=== PATIENT | male | born 1970 | race Hispanic/Latino ===

== ENCOUNTER → 2021-02-20 | Day surgery (SDC) | payer MEDICARE ==
[2021-02-19 15:57] LABS: BASOPHILS # (AUTO) 0.1 (0.0-0.1); BASOPHILS % 0.9 % (0.0-1.0); EOSINOPHILS # (AUTO) 0.2 (0.0-0.4); EOSINOPHILS % 1.8 % (0.0-6.0); HEMATOCRIT 45.2 % (38.2-49.6); HEMOGLOBIN 15.3 g/dL (14.0-18.0); LYMPHOCYTES # (AUTO) 1.8 (1.0-3.2); LYMPHOCYTES % 22.2 % (18.0-39.1); MEAN CORPUSCULAR HEMOGLOBIN 29.1 pg (28-32); MEAN CORPUSCULAR HGB CONC 33.8 g/dL (31-35); MEAN CORPUSCULAR VOLUME 85.9 fL (81-99); MONOCYTES # (AUTO) 0.6 (0.2-0.8); MONOCYTES % 7.4 % (4.4-11.3); NEUTROPHILS # (AUTO) 5.6 (2.1-6.9); NEUTROPHILS % 67.5 % (38.7-80.0); PLATELET COUNT 318 x10e3/uL (140-360); RED BLOOD COUNT 5.26 x10e6/uL (4.3-5.7); RED CELL DISTRIBUTION WIDTH 12.5 % (11.7-14.4)
[2021-02-19 16:07] LABS: ANION GAP 11.1 mmol/L (8-16); CALCIUM 9.2 mg/dL (8.4-10.2); CREATININE, SERUM 1.13 mg/dL (0.72-1.25); POTASSIUM 4.1 mmol/L (3.5-5.1)
[~2021-02-20] MED LIST: CEFTRIAXONE 1 GM VIAL ONE; CLOPIDOGREL75 MG PO; DEXAMETHASONE SOD PHOS INJ 4 MG/ML VIAL ONE; FARXIGA5 MG PO; FENTANYL CITRATE/PF 100MCG/2 ML INJ ONE; GLIMEPIRIDE2 MG PO; IOPAMIDOL 300MG/ML 50ML INFUS..BTL IV ONE; IRBESARTAN150 MG PO; LIDOCAINE HCL 2% LOCAL INJ 5 ML SDV VIAL INJ ONE; LYRICA100 MG PO; METFORMIN HCL500 MG PO; MIDAZOLAM HCL 2 MG/2 ML VIAL ONE; NEURONTIN400 MG PO; ONDANSETRON HCL INJ 2MG/ML 2ML 2 MG/ML VIAL ONE; PAMELOR25 MG PO; POVIDONE IODINE 0.05% 0.05 % ML PO ONE; PROPOFOL IV EMULSION 10 MG/ML 20 ML VIAL ONE; SEVOFLURANE INHAL SOLN 250 ML PEN BTL ONE; SIMVASTATIN80 MG PO; SODIUM CHLORIDE 0.9% 50ML 50 ML ONE; TRICOR145 MG PO
[2021-02-20 10:15] VITALS: BP 128/100
== END | disposition home or self-care (01) ==
LOC: OR 07:03
PROVIDERS: ATTEND Urology
DX: N32.89 Other specified disorders of bladder (principal); N40.1 Benign prostatic hyperplasia with lower urinary tract symptoms; N13.8 Other obstructive and reflux uropathy; N20.0 Calculus of kidney; D41.4 Neoplasm of uncertain behavior of bladder; R81 Glycosuria; E11.9 Type 2 diabetes mellitus without complications; Z01.810 Encounter for preprocedural cardiovascular examination; Z01.812 Encounter for preprocedural laboratory examination; Z01.818 Encounter for other preprocedural examination; Z79.02 Long term (current) use of antithrombotics/antiplatelets; Z79.82 Long term (current) use of aspirin; Z79.84 Long term (current) use of oral hypoglycemic drugs
CPT/HCPCS: 36415 ×2; 52005; 71046; 74420; 80048; 82948; 85025; 93005; C1758; J0696; J1100; J2001; J2405; J2704; Q9967; J2250; J3010

== ENCOUNTER 2022-04-17 18:15 | Emergency (ER) | payer MEDICARE, OTHER ==
[~2022-04-17] VITALS: Ht 167.6 cm; Wt 81.6 kg
[~2022-04-17 18:15] MED LIST changes: -CEFTRIAXONE 1 GM VIAL ONE; +CRESTOR10 MG PO; -DEXAMETHASONE SOD PHOS INJ 4 MG/ML VIAL ONE; -FENTANYL CITRATE/PF 100MCG/2 ML INJ ONE; -IOPAMIDOL 300MG/ML 50ML INFUS..BTL IV ONE; -LIDOCAINE HCL 2% LOCAL INJ 5 ML SDV VIAL INJ ONE; +MELOXICAM7.5 MG PO; -MIDAZOLAM HCL 2 MG/2 ML VIAL ONE; +MULTI-VITAMIN1 EACH PO; +NITROGLYCERIN0.4 MG SL; +OMEPRAZOLE40 MG PO; -ONDANSETRON HCL INJ 2MG/ML 2ML 2 MG/ML VIAL ONE; +OSTEO BI-FLEX1 EAC2 PO; -POVIDONE IODINE 0.05% 0.05 % ML PO ONE; -PROPOFOL IV EMULSION 10 MG/ML 20 ML VIAL ONE; +PROZAC20 MG PO; -SEVOFLURANE INHAL SOLN 250 ML PEN BTL ONE; -SODIUM CHLORIDE 0.9% 50ML 50 ML ONE; +VITAMIN D310 MCG PO
[2022-04-17 18:38] LABS: PHENCYCLIDINE SCREEN,URINE NEGATIVE (NEGATIVE)
[2022-04-17 18:39] LABS: AMPHETAMINES SCREEN,URINE POSITIVE (NEGATIVE); BENZODIAZEPINES SCREEN,URINE NEGATIVE (NEGATIVE)
== END 2022-04-17 19:00 | disposition home or self-care (01) ==
LOC: ER 18:19
DX: F15.10 Other stimulant abuse, uncomplicated (principal); I10 Essential (primary) hypertension
CPT/HCPCS: 80307; 83518; 87070; 99282

== ENCOUNTER → 2022-04-22 | Day surgery (SDC) | payer MEDICARE, OTHER ==
[2022-04-20 13:38] LABS: BASOPHILS # (AUTO) 0.1 (0.0-0.1); BASOPHILS % 0.6 % (0.0-1.0); EOSINOPHILS # (AUTO) 0.2 (0.0-0.4); EOSINOPHILS % 2.6 % (0.0-6.0); HEMATOCRIT 44.7 % (38.2-49.6); HEMOGLOBIN 14.8 g/dL (14.0-18.0); LYMPHOCYTES # (AUTO) 1.6 (1.0-3.2); LYMPHOCYTES % 18.2 % (18.0-39.1); MEAN CORPUSCULAR HEMOGLOBIN 28.8 pg (28-32); MEAN CORPUSCULAR HGB CONC 33.1 g/dL (31-35); MONOCYTES # (AUTO) 0.6 (0.2-0.8); MONOCYTES % 6.9 % (4.4-11.3); NEUTROPHILS # (AUTO) 6.3 (2.1-6.9); NEUTROPHILS % 71.5 % (38.7-80.0); PLATELET COUNT 327 x10e3/uL (140-360); RED BLOOD COUNT 5.14 x10e6/uL (4.3-5.7); RED CELL DISTRIBUTION WIDTH 13.2 % (11.7-14.4)
[~2022-04-22] MED LIST changes: +FENTANYL CITRATE/PF 100MCG/2 ML INJ ONE; +MIDAZOLAM HCL 2 MG/2 ML VIAL ONE; +PROPOFOL IV EMULSION 10 MG/ML 20 ML VIAL ONE
[2022-04-22 11:13] VITALS: BP 121/87
== END | disposition home or self-care (01) ==
LOC: OR 06:47
PROVIDERS: ATTEND Internal Medicine Gastroenterology
DX: K29.50 Unspecified chronic gastritis without bleeding (principal); K21.9 Gastro-esophageal reflux disease without esophagitis; K44.9 Diaphragmatic hernia without obstruction or gangrene; K64.8 Other hemorrhoids; I25.10 Atherosclerotic heart disease of native coronary artery without angina pectoris; E11.9 Type 2 diabetes mellitus without complications; I10 Essential (primary) hypertension; F32.A Depression, unspecified; Z88.6 Allergy status to analgesic agent; Z91.041 Radiographic dye allergy status; Z01.810 Encounter for preprocedural cardiovascular examination; Z01.812 Encounter for preprocedural laboratory examination; Z79.02 Long term (current) use of antithrombotics/antiplatelets; Z79.84 Long term (current) use of oral hypoglycemic drugs; Z79.899 Other long term (current) drug therapy; Z98.61 Coronary angioplasty status
CPT/HCPCS: 36415; 43239; 45378; 82948; 85025; 88304; 88305; 88312; 88342; 93005; J2250; J3010

== ENCOUNTER 2024-02-25 17:25 | Emergency (ER) | payer MEDICARE, OTHER ==
[~2024-02-25] VITALS: Ht 167.6 cm; Wt 81.6 kg
[~2024-02-25 17:25] MED LIST changes: -FENTANYL CITRATE/PF 100MCG/2 ML INJ ONE; -MIDAZOLAM HCL 2 MG/2 ML VIAL ONE; -PROPOFOL IV EMULSION 10 MG/ML 20 ML VIAL ONE
[2024-02-25] MEDS: ACETAMINOPHEN 325 MG TAB PO ONE (18:27)
[2024-02-25] MEDS: ACETAMINOPHEN 325 MG TAB PO STA (18:28)
[2024-02-25] MEDS: LIDOCAINE HCL 1% LOCAL INJ 20 ML VIAL INJ STA (18:33)
[2024-02-25] MEDS: ONDANSETRON HCL 4 MG ORAL DISINTEGRATING TAB PO ONE (18:42)
[2024-02-25] MEDS: Morphine 4mg INJECTION 4 MG/ML INJ IM ONE (18:42)
[2024-02-25] MEDS: SODIUM CHLORIDE 0.9% 1000ML 2,000 ML IV STA (19:05)
[2024-02-25] MEDS ORDERED: HYDROCODON-ACE1 EA11 PO (19:48)
[2024-02-25] MEDS: FENTANYL CITRATE/PF 100MCG/2 ML INJ IV ONE (19:49)
[2024-02-25 19:56] VITALS: PULSE 113; RESP 16; TEMP 99.8; O2SAT 100
== END 2024-02-25 20:00 | disposition home or self-care (01) ==
LOC: ER 17:43
DX: L02.411 Cutaneous abscess of right axilla (principal); R00.0 Tachycardia, unspecified; R94.31 Abnormal electrocardiogram [ECG] [EKG]
CPT/HCPCS: 10061; 93005; 99284

== ENCOUNTER 2024-02-27 15:12 | Inpatient (IN) | payer MEDICARE, OTHER ==
[~2024-02-27] VITALS: Ht 167.6 cm; Wt 2.9 kg
[~2024-02-27 15:12] MED LIST changes: +HYDROCODON-ACE1 EA11 PO
[2024-02-27 15:46] LABS: BASOPHILS # (AUTO) 0.1 (0.0-0.1); BASOPHILS % 0.3 % (0.0-1.0); EOSINOPHILS # (AUTO) 0.1 (0.0-0.4); EOSINOPHILS % 0.4 % (0.0-6.0); HEMATOCRIT 34.9 % (38.2-49.6); HEMOGLOBIN 11.6 g/dL (14.0-18.0); LYMPHOCYTES # (AUTO) 0.6 (1.0-3.2); MEAN CORPUSCULAR HEMOGLOBIN 27.9 pg (28-32); MEAN CORPUSCULAR HGB CONC 33.2 g/dL (31-35); MEAN CORPUSCULAR VOLUME 83.9 fL (81-99); MONOCYTES % 4.9 % (4.4-11.3); NEUTROPHILS # (AUTO) 16.7 (2.1-6.9); NEUTROPHILS % 80.7 % (38.7-80.0); PLATELET COUNT 313 x10e3/uL (140-360); RED BLOOD COUNT 4.16 x10e6/uL (4.3-5.7); RED CELL DISTRIBUTION WIDTH 13.6 % (11.7-14.4); WHITE BLOOD COUNT 20.72 x10e3/uL (4.8-10.8)
[2024-02-27 15:55] LABS: INR 1.15; PROTHROMBIN TIME 15.5 seconds (11.9-14.5)
[2024-02-27 15:56] LABS: PARTIAL THROMBOPLASTIN TIME 29.9 seconds (23.8-35.5)
[2024-02-27] MEDS ORDERED: Morphine 4mg INJECTION 4 MG/ML INJ IV ONE (16:00)
[2024-02-27] MEDS: Vancomycin IV 1 GM in SODIUM CHLORIDE 0.9% 250ML 250 ML IV ONE (16:00)
[2024-02-27 16:05] LABS: ALANINE AMINOTRANSFERASE 31 IU/L (0-55); ALBUMIN 2.9 g/dL (3.5-5.0); ALBUMIN/GLOBULIN RATIO 0.7 (0.8-2.0); ALKALINE PHOSPHATASE 91 IU/L (40-150); BILIRUBIN,TOTAL 0.5 mg/dL (0.2-1.2); BLOOD UREA NITROGEN 27 mg/dL (7-26); CALCIUM 9.8 mg/dL (8.4-10.2); CARBON DIOXIDE 20 mmol/L (22-29); CREATINE KINASE 55 IU/L (30-200); GLUCOSE 251 mg/dL (74-118); MAGNESIUM 1.8 MG/DL (1.3-2.1); TOTAL PROTEIN 6.9 g/dL (6.5-8.1)
[2024-02-27 16:09] LABS: TROPONIN I < 0.001 ng/mL (0-0.300)
[2024-02-27 16:48] LABS: CHLORIDE 97 mmol/L (98-107); CREATININE, SERUM 1.85 mg/dL (0.72-1.25); EST GLOMERULAR FILTRATION RATE 42 ML/MIN (>=60); SODIUM 129 mmol/L (136-145)
[2024-02-27 16:50] LABS: BUN/CREATININE RATIO 15 (6-25)
[2024-02-27] MEDS ORDERED: IOPAMIDOL 370 MG/ML 100 ML INFUS..BTL INJ ONE (17:00)
[2024-02-27] MEDS: SODIUM CHLORIDE 0.9% 1000ML 1,000 ML IV ONE ×2 (18:26)
[2024-02-27] MEDS: SODIUM CHLORIDE 0.9% 1000ML 1,000 ML IV SCH (18:27)
[2024-02-27 18:52] LABS: BILIRUBIN,URINE NEGATIVE (NEGATIVE); CLARITY,URINE SL CLOUDY (CLEAR); COLOR,URINE YELLOW (YELLOW); GLUCOSE, URINE 500 (NEGATIVE); KETONES,URINE NEGATIVE (NEGATIVE); LEUKOCYTE ESTERASE ,URINE NEGATIVE (NEGATIVE); NITRITE,URINE NEGATIVE (NEGATIVE); PH,URINE 5.5 (5 - 7); PROTEIN,URINE DIPSTICK TRACE (NEGATIVE); URINE UROBILINOGEN 0.2 mg/dL (0.2 - 1)
[2024-02-27 18:54] LABS: AMPHETAMINES SCREEN,URINE NEGATIVE (NEGATIVE); BENZODIAZEPINES SCREEN,URINE NEGATIVE (NEGATIVE); CANNABINOIDS SCREEN,URINE NEGATIVE (NEGATIVE); METHADONE SCREEN, URINE NEGATIVE (NEGATIVE); OPIATES SCREEN,URINE POSITIVE (NEGATIVE); PHENCYCLIDINE SCREEN,URINE NEGATIVE (NEGATIVE)
[2024-02-27 19:01] LABS: BACTERIA,URINE FEW /HPF
[2024-02-27] MEDS: ONDANSETRON HCL INJ 2MG/ML 2ML 2 MG/ML VIAL IV STA (19:08)
[2024-02-27] MEDS: ACETAMINOPHEN 325 MG TAB PO ONE (19:08)
[2024-02-27 19:17] VITALS: PULSE 108; RESP 17; TEMP 100.1
[2024-02-27 19:34] LABS: LYMPHOCYTES % (MANUAL) 6 % (19-48); MONOCYTES % (MANUAL) 2 % (3.4-9.0); NEUTROPHILS % (MANUAL) 92 % (40-74); PLATELET ESTIMATE ADEQUATE; PLATELET MORPHOLOGY COMMENT NORMAL; RBC MORPHOLOGY COMMENT NORMAL
[2024-02-27 21:03] VITALS: BP 115/79; PULSE 105; RESP 20; TEMP 99.3; O2SAT 99
[2024-02-27] MEDS: ONDANSETRON HCL INJ 2MG/ML 2ML 2 MG/ML VIAL IV PRN (23:16)
[2024-02-27] MEDS: Morphine 2mg Syringe 2 MG/ML SYR IV PRN (23:16)
[2024-02-28] VITALS (10 sets, daily range): BP systolic 114–141; BP diastolic 57–95; PULSE 85–106; RESP 18; TEMP 97.9–99.6; O2SAT 94–99
[2024-02-28 00:30] LABS: TROPONIN I 0.012 ng/mL (0-0.300)
[2024-02-28 06:07] LABS: BASOPHILS # (AUTO) 0.1 (0.0-0.1); BASOPHILS % 0.4 % (0.0-1.0); EOSINOPHILS # (AUTO) 0.1 (0.0-0.4); EOSINOPHILS % 0.8 % (0.0-6.0); HEMATOCRIT 30.6 % (38.2-49.6); HEMOGLOBIN 10.1 g/dL (14.0-18.0); LYMPHOCYTES # (AUTO) 0.8 (1.0-3.2); LYMPHOCYTES % 4.3 % (18.0-39.1); MEAN CORPUSCULAR HEMOGLOBIN 28.1 pg (28-32); MONOCYTES % 5.5 % (4.4-11.3); NEUTROPHILS % 77.9 % (38.7-80.0); PLATELET COUNT 279 x10e3/uL (140-360); RED CELL DISTRIBUTION WIDTH 13.5 % (11.7-14.4); WHITE BLOOD COUNT 17.98 x10e3/uL (4.8-10.8)
[2024-02-28 06:32] LABS: ALBUMIN 2.3 g/dL (3.5-5.0); ALBUMIN/GLOBULIN RATIO 0.7 (0.8-2.0); BILIRUBIN,TOTAL 0.4 mg/dL (0.2-1.2); CALCIUM 8.7 mg/dL (8.4-10.2); CREATININE, SERUM 1.49 mg/dL (0.72-1.25); TOTAL PROTEIN 5.7 g/dL (6.5-8.1)
[2024-02-28 07:05] LABS: CREATINE KINASE 26 IU/L (30-200)
[2024-02-28 07:30] LABS: TROPONIN I < 0.001 ng/mL (0-0.300)
[2024-02-28] MEDS: INSULIN LISPRO 100 UNIT/1 ML 3ML VIAL SQ SCH (08:15)
[2024-02-28] MEDS: Morphine 4mg INJECTION 4 MG/ML INJ IV PRN (09:54)
[2024-02-28] MEDS: GABAPENTIN 400 MG CAP PO SCH (10:01)
[2024-02-28] MEDS: FENOFIBRATE 145 MG TAB PO SCH (10:01)
[2024-02-28] MEDS: FLUOXETINE HCL 20 MG CAP PO SCH (10:02)
[2024-02-28] MEDS: PANTOPRAZOLE SOD 40 MG TABEC PO SCH (10:02)
[2024-02-28 18:17] LABS: CREATINE KINASE 24 IU/L (30-200)
[2024-02-28 18:24] LABS: TROPONIN I < 0.001 ng/mL (0-0.300)
[2024-02-28] MEDS: INSULIN GLARGINE 100 UNITS/ML VIAL SQ SCH (20:29)
[2024-02-29] VITALS (8 sets, daily range): BP systolic 123–158; BP diastolic 85–103; PULSE 89–100; RESP 17–20; TEMP 97.8–99; O2SAT 95–100
[2024-02-29 05:52] LABS: BASOPHILS # (AUTO) 0.1 (0.0-0.1); BASOPHILS % 0.6 % (0.0-1.0); EOSINOPHILS # (AUTO) 0.2 (0.0-0.4); EOSINOPHILS % 0.9 % (0.0-6.0); HEMATOCRIT 32.9 % (38.2-49.6); HEMOGLOBIN 10.9 g/dL (14.0-18.0); LYMPHOCYTES # (AUTO) 1.2 (1.0-3.2); LYMPHOCYTES % 7.1 % (18.0-39.1); MEAN CORPUSCULAR HEMOGLOBIN 28.3 pg (28-32); MEAN CORPUSCULAR HGB CONC 33.1 g/dL (31-35); MEAN CORPUSCULAR VOLUME 85.5 fL (81-99); MONOCYTES # (AUTO) 1.2 (0.2-0.8); MONOCYTES % 6.8 % (4.4-11.3); NEUTROPHILS # (AUTO) 14.2 (2.1-6.9); NEUTROPHILS % 83.3 % (38.7-80.0); PLATELET COUNT 293 x10e3/uL (140-360); RED BLOOD COUNT 3.85 x10e6/uL (4.3-5.7); RED CELL DISTRIBUTION WIDTH 13.9 % (11.7-14.4); WHITE BLOOD COUNT 17.06 x10e3/uL (4.8-10.8)
[2024-02-29 06:32] LABS: CALCIUM 8.7 mg/dL (8.4-10.2); CREATININE, SERUM 1.12 mg/dL (0.72-1.25)
[2024-02-29] MEDS: GABAPENTIN 300 MG CAP PO SCH (09:00)
[2024-02-29] MEDS: SENNA-S TABLET PO SCH (09:00)
[2024-02-29] MEDS: HYDROMORPHONE 1MG/1ML INJ IV ONE (09:17)
[2024-02-29] MEDS: DEXTROSE 50% SYRINGE 50 ML IV PRN (10:54)
[2024-02-29] MEDS: INSULIN LISPRO 100 UNIT/1 ML 3ML VIAL SQ SCH (11:30)
[2024-02-29] MEDS ORDERED: FENTANYL CITRATE/PF 100MCG/2 ML INJ ONE (13:11)
[2024-02-29] MEDS ORDERED: MIDAZOLAM HCL 2 MG/2 ML VIAL ONE (13:11)
[2024-02-29] MEDS: FENTANYL CITRATE/PF 100MCG/2 ML INJ ONE (14:10)
[2024-02-29] MEDS: HYDROMORPHONE 1MG/1ML INJ IV PRN (14:50)
[2024-02-29] MEDS ORDERED: ACETAMINOPHEN 1000 MG/100 ML IV ONE (17:16)
[2024-02-29] MEDS ORDERED: PROPOFOL IV EMULSION 10 MG/ML 20 ML VIAL ONE (17:16)
[2024-02-29] MEDS ORDERED: SODIUM CHLORIDE 0.9% INJ 100 ML BAG ONE (17:16)
[2024-02-29] MEDS ORDERED: SEVOFLURANE INHAL SOLN 250 ML PEN BTL ONE (17:16)
[2024-02-29] MEDS ORDERED: DEXMEDETOMIDINE HCL 200 MCG/2 ML VIAL ONE (17:16)
[2024-02-29] MEDS ORDERED: LIDOCAINE HCL 2% LOCAL INJ 5 ML SDV VIAL INJ ONE (17:16)
[2024-02-29] MEDS ORDERED: METOCLOPRAMIDE HCL 10 MG/2ML VIAL ONE (17:16)
[2024-02-29] MEDS ORDERED: ONDANSETRON HCL INJ 2MG/ML 2ML 2 MG/ML VIAL ONE (17:16)
[2024-02-29] MEDS: INSULIN GLARGINE 100 UNITS/ML VIAL SQ SCH (20:16)
[2024-03-01] VITALS (7 sets, daily range): BP systolic 120–146; BP diastolic 85–93; PULSE 89–95; RESP 18–20; TEMP 98.2–98.6; O2SAT 96–100
[2024-03-01 05:44] LABS: BASOPHILS # (AUTO) 0.1 (0.0-0.1); BASOPHILS % 0.6 % (0.0-1.0); EOSINOPHILS # (AUTO) 0.1 (0.0-0.4); EOSINOPHILS % 1.3 % (0.0-6.0); HEMATOCRIT 31.6 % (38.2-49.6); HEMOGLOBIN 10.4 g/dL (14.0-18.0); LYMPHOCYTES # (AUTO) 1.2 (1.0-3.2); MEAN CORPUSCULAR HEMOGLOBIN 27.7 pg (28-32); MEAN CORPUSCULAR HGB CONC 32.9 g/dL (31-35); MEAN CORPUSCULAR VOLUME 84.3 fL (81-99); MONOCYTES # (AUTO) 1.2 (0.2-0.8); MONOCYTES % 10.9 % (4.4-11.3); NEUTROPHILS # (AUTO) 7.9 (2.1-6.9); NEUTROPHILS % 72.9 % (38.7-80.0); PLATELET COUNT 364 x10e3/uL (140-360); RED BLOOD COUNT 3.75 x10e6/uL (4.3-5.7); RED CELL DISTRIBUTION WIDTH 13.8 % (11.7-14.4); WHITE BLOOD COUNT 10.77 x10e3/uL (4.8-10.8)
[2024-03-01 06:27] LABS: ANION GAP 14.9 mmol/L (8-16); CALCIUM 8.5 mg/dL (8.4-10.2); CREATININE, SERUM 1.26 mg/dL (0.72-1.25); POTASSIUM 3.9 mmol/L (3.5-5.1)
[2024-03-01] MEDS ORDERED: VANCOMYCIN HCL 1.25 GM in SODIUM CHLORIDE 0.9% 250ML 250 ML IV SCH (10:30)
[2024-03-01] MEDS ORDERED: Vancomycin IV 1.25 GM in SODIUM CHLORIDE 0.9% 250ML 250 ML IV SCH (10:30)
[2024-03-01] MEDS: VANCOMYCIN 1.25GM/250ML PREMIX 250 ML IV SCH (11:15)
[2024-03-02 00:29] VITALS: BP 121/82; PULSE 90; RESP 22; TEMP 98.5; O2SAT 100
[2024-03-02 05:30] VITALS: BP 131/90; PULSE 79; RESP 20; TEMP 97.6; O2SAT 100
[2024-03-02 08:00] VITALS: BP 129/79; PULSE 91; RESP 18; TEMP 97.6; O2SAT 100
[2024-03-02 12:00] VITALS: BP 122/85; PULSE 87; RESP 17; TEMP 98; O2SAT 99
[2024-03-02 16:00] VITALS: BP 142/90; PULSE 82; RESP 17; TEMP 98; O2SAT 100
[2024-03-02 20:00] VITALS: BP 129/83; PULSE 101; RESP 18; TEMP 98.4; O2SAT 99
[2024-03-03] VITALS (7 sets, daily range): BP systolic 117–147; BP diastolic 69–96; PULSE 65–105; RESP 16–20; TEMP 97.6–98.5; O2SAT 98–100
[2024-03-03] MEDS ORDERED: SODIUM CHLORIDE 0.9% 100 ML ONE (01:25)
[2024-03-03] MEDS: ACETAMINOPHEN 325 MG TAB PO PRN (09:25)
[2024-03-04] VITALS (7 sets, daily range): BP systolic 127–146; BP diastolic 77–95; PULSE 78–87; RESP 18–20; TEMP 97.7–98.7; O2SAT 99–100
[2024-03-04] MEDS: HYDROCODONE/APAP 10MG-325MG TAB PO PRN (08:00)
[2024-03-05] VITALS (7 sets, daily range): BP systolic 119–162; BP diastolic 76–104; PULSE 74–86; RESP 17–20; TEMP 97.9–98.9; O2SAT 100
[2024-03-05 05:56] LABS: BASOPHILS # (AUTO) 0.1 (0.0-0.1); BASOPHILS % 0.7 % (0.0-1.0); EOSINOPHILS # (AUTO) 0.3 (0.0-0.4); EOSINOPHILS % 2.9 % (0.0-6.0); HEMATOCRIT 34.1 % (38.2-49.6); HEMOGLOBIN 11.2 g/dL (14.0-18.0); LYMPHOCYTES # (AUTO) 2.1 (1.0-3.2); MEAN CORPUSCULAR HEMOGLOBIN 27.9 pg (28-32); MEAN CORPUSCULAR HGB CONC 32.8 g/dL (31-35); MEAN CORPUSCULAR VOLUME 84.8 fL (81-99); MONOCYTES % 9.2 % (4.4-11.3); NEUTROPHILS # (AUTO) 6.5 (2.1-6.9); NEUTROPHILS % 63.1 % (38.7-80.0); PLATELET COUNT 600 x10e3/uL (140-360); RED BLOOD COUNT 4.02 x10e6/uL (4.3-5.7); RED CELL DISTRIBUTION WIDTH 13.6 % (11.7-14.4); WHITE BLOOD COUNT 10.28 x10e3/uL (4.8-10.8)
[2024-03-05 06:42] LABS: CREATININE, SERUM 1.24 mg/dL (0.72-1.25)
[2024-03-05] MEDS: CLOPIDOGREL BISULFATE 75 MG TAB PO SCH (09:38)
[2024-03-05] MEDS: IRBESARTAN 150 MG TAB PO SCH (09:39)
[2024-03-05] MEDS: NORTRIPTYLINE HCL 25 MG CAP PO SCH (09:40)
[2024-03-05] MEDS: INSULIN LISPRO 100 UNIT/1 ML 3ML VIAL SQ SCH (11:45)
[2024-03-06] VITALS: BP 123/81; PULSE 65; RESP 18; TEMP 97.6; O2SAT 100
[2024-03-06 04:00] VITALS: BP 108/88; PULSE 81; RESP 18; TEMP 97.8; O2SAT 98
[2024-03-06 08:12] VITALS: BP 142/84; PULSE 76; RESP 17; TEMP 97.9; O2SAT 100
[2024-03-06 12:05] VITALS: BP 96/71; PULSE 84; RESP 19; TEMP 97.9; O2SAT 99
[2024-03-06] MEDS: SODIUM HYPOCHLORITE 0.25% 480 ML SOLN IR ONE (13:28)
[2024-03-06] MEDS ORDERED: Insulin Glargine SQ (15:12)
[2024-03-06] MEDS ORDERED: GABAPENTIN300 MG PO (15:12)
[2024-03-06] MEDS ORDERED: SENNA S TABLET1 EACH PO (15:12)
[2024-03-06] MEDS ORDERED: Insulin Lispro SQ (15:12)
[2024-03-06] MEDS ORDERED: CEPHALEXIN500 MG PO (15:14)
== END 2024-03-06 16:38 | disposition home or self-care (01) | DRG 854 ==
LOC: ER 15:41 → ERHOLD 18:35 → MED/SURG2 21:51
PROVIDERS: ADMIT Internal Medicine; ATTEND Internal Medicine
PROC: 3E0333Z Introduction of Anti-inflammatory into Peripheral Vein, Percutaneous Approach (ICD-10-PCS; 2024-02-27)
PROC: 0JBD0ZZ Excision of Right Upper Arm Subcutaneous Tissue and Fascia, Open Approach (ICD-10-PCS; principal; 2024-02-29 13:00)
DX: A41.01 Sepsis due to Methicillin susceptible Staphylococcus aureus (principal); E87.20 Acidosis, unspecified; L02.411 Cutaneous abscess of right axilla; L03.113 Cellulitis of right upper limb; N17.9 Acute kidney failure, unspecified; L03.111 Cellulitis of right axilla; Z16.29 Resistance to other single specified antibiotic; R65.20 Severe sepsis without septic shock; E11.22 Type 2 diabetes mellitus with diabetic chronic kidney disease; E11.65 Type 2 diabetes mellitus with hyperglycemia; E78.5 Hyperlipidemia, unspecified; I12.9 Hypertensive chronic kidney disease with stage 1 through stage 4 chronic kidney disease, or unspecified chronic kidney disease; N18.30 Chronic kidney disease, stage 3 unspecified; K21.9 Gastro-esophageal reflux disease without esophagitis; Z11.52 Encounter for screening for COVID-19; E66.9 Obesity, unspecified; Z68.31 Body mass index [BMI] 31.0-31.9, adult; F41.9 Anxiety disorder, unspecified; F32.A Depression, unspecified; Z79.84 Long term (current) use of oral hypoglycemic drugs; Z79.02 Long term (current) use of antithrombotics/antiplatelets
CPT/HCPCS: 36415; 71260; 73201; 76882; 80048; 80053; 80202; 80307; 81001; 82550; 82948; 83036; 83605; 83735; 84484; 85025; 85610; 85730; 87040; 87071; 87075; 87086; 87186; 87205; 93005; 93971; 99252; 99284; J0690; J1170; J1815; J2001; J2250; J2270; J2405; J2543; J2765; J7030; J7050; J7799; Q9967; U0002